=== PATIENT | female | born 1975 | race Caucasian/White ===

== ENCOUNTER 2023-06-06 18:31 | Observation (INO) ==
[2023-06-06] MEDS: PIPERACILLIN SODIUM/TAZOBACTAM 3.375 GM in DEXTROSE 5% IN WATER 50 ML IV ONE (19:13)
[2023-06-06] MEDS ORDERED: PROMETHAZINE 25 MG/ML VIAL IV PRN (19:27)
[2023-06-06] MEDS ORDERED: ONDANSETRON 4 MG/2 ML VIAL IV PRN (19:27)
[2023-06-06 19:33] LABS: Appearance,Urine Clear (Clear); Bilirubin,Urine Negative (Negative); Color,Urine Yellow; Glucose,Urine (UA) Negative (Negative); Ketones,Urine 40 mg/dL (Negative); Leukocyte Esterase,Urine Negative /uL (Negative); Nitrate,Urine Negative (Negative); PH,Urine 5.5 (5.0-9.0); Protein,Urine Trace mg/dL (Negative); Specific Gravity,Urine <= 1.005 (1.000-1.035); Urine Blood Moderate ery/mcL (Negative); Urobilinogen,Urine Normal
[2023-06-06 19:44] LABS: Culture Indicated,Urine No; Urine RBC < 1 /hpf (0-3); Urine Squamous Epithelial Cell < 1 /hpf (0-4); Urine WBC < 1 /hpf (0-4)
[2023-06-06 20:08] LABS: Prothrombin Time 14.1 sec (11.9-14.5)
[2023-06-06] MEDS: ACETAMINOPHEN 1,000 MG/100 ML BAG IV SCH (21:07)
[2023-06-06] MEDS: 0.9 % SODIUM CHLORIDE 1,000 ML IV SCH (21:08)
[2023-06-06] MEDS: PIPERACILLIN SODIUM/TAZOBACTAM 3.375 GM in DEXTROSE 5% IN WATER 100 ML IV SCH (21:08)
[2023-06-07 08:46] LABS: Basophils # (Auto) 0.02 K/mcL (0.00-0.30); Basophils % (Auto) 0.2 % (0.0-2.0); Eosinophils # (Auto) 0.08 K/mcL (0.00-0.70); Hematocrit 36.6 % (34.1-44.9); Hemoglobin 12.1 g/dL (11.2-15.7); Lymphocytes # (Auto) 0.82 K/mcL (1.50-4.80); Lymphocytes % (Auto) 9.8 % (15.5-49.0); Mean Cell Volume 96.3 fL (80.0-100.0); Mean Corpuscular HGB Conc 33.1 g/dL (31.0-36.0); Mean Platelet Volume 8.5 fL (8.8-12.5); Monocytes # (Auto) 0.51 K/mcL (0.10-0.90); Monocytes % (Auto) 6.1 % (1.0-12.0); Neutrophils % (Auto) 82.8 % (38.0-78.0); Platelet Count 235 K/mcL (140-440); Red Cell Distribution Width 12.5 % (11.5-14.5); WBC 8.4 K/mcL (4.5-11.0)
[2023-06-07] MEDS ORDERED: ROCURONIUM 10 MG/ML ML IV ONE ×2 (09:08→09:42)
[2023-06-07] MEDS ORDERED: fentaNYL 100 MCG/2 ML VIAL ONE (09:12)
[2023-06-07] MEDS ORDERED: ONDANSETRON 4 MG/2 ML VIAL ONE (09:12)
[2023-06-07] MEDS ORDERED: IPRATROPIUM/ALBUTEROL 3 ML AMPUL.NEB NEB PRN ×2 (09:30→09:45)
[2023-06-07] MEDS ORDERED: SCOPOLAMINE 1 PATCH PATCH TOPICAL PRN (09:30)
[2023-06-07] MEDS ORDERED: PHENYLephrine 1 MG/10 ML SYRINGE (ANEST) ONE (09:33)
[2023-06-07] MEDS ORDERED: PROPOFOL 200 MG/20 ML VIAL IV ONE (09:42)
[2023-06-07] MEDS ORDERED: KETOROLAC 15 MG/ML VIAL IV PRN (09:45)
[2023-06-07] MEDS ORDERED: NALOXONE HCL 0.4 MG/ML VIAL IV PRN (09:45)
[2023-06-07] MEDS ORDERED: fentaNYL 100 MCG/2 ML VIAL IV PRN ×2 (09:45→11:45)
[2023-06-07] MEDS ORDERED: PROCHLORPERAZINE 10 MG/2 ML VIAL IV PRN (09:46)
[2023-06-07] MEDS ORDERED: SUGAMMADEX SODIUM 200 MG/2 ML VIAL IV ONE (09:48)
[2023-06-07] MEDS ORDERED: HYDROmorphone 1 MG/ML SYRINGE ONE (09:49)
[2023-06-07] MEDS ORDERED: oxyCODONE IR 5 MG TABLET PO PRN (11:46)
[2023-06-08 05:54] LABS: Basophils # (Auto) 0.01 K/mcL (0.00-0.30); Basophils % (Auto) 0.1 % (0.0-2.0); Eosinophils # (Auto) 0.03 K/mcL (0.00-0.70); Eosinophils % (Auto) 0.3 % (0.0-7.0); Hematocrit 34.3 % (34.1-44.9); Hemoglobin 11.1 g/dL (11.2-15.7); Lymphocytes # (Auto) 0.89 K/mcL (1.50-4.80); Lymphocytes % (Auto) 8.6 % (15.5-49.0); Mean Cell Volume 97.2 fL (80.0-100.0); Mean Corpuscular HGB Conc 32.4 g/dL (31.0-36.0); Mean Platelet Volume 8.8 fL (8.8-12.5); Monocytes # (Auto) 0.45 K/mcL (0.10-0.90); Monocytes % (Auto) 4.4 % (1.0-12.0); Neutrophils % (Auto) 86.4 % (38.0-78.0); Platelet Count 260 K/mcL (140-440); RBC 3.53 M/mcL (3.59-5.38); Red Cell Distribution Width 12.4 % (11.5-14.5); WBC 10.3 K/mcL (4.5-11.0)
[2023-06-08] MEDS: ESTRADIOL 1 MG TABLET PO SCH (08:20)
[2023-06-08] MEDS: THYROID, PORK 60 MG TABLET PO SCH (08:20)
[2023-06-08] MEDS ORDERED: ESTRADIOL 0.5 MG TABLET PO SCH (09:00)
[2023-06-08] MEDS: Progesterone Micronized 100 mg capsule PO SCH (09:34)
[2023-06-08] MEDS: ACETAMINOPHEN 500 MG TABLET PO SCH (13:52)
== END 2023-06-08 14:35 | disposition home or self-care (01) ==
LOC: ED 18:31 → MEDSUR 18:31
PROVIDERS: ADMIT Family Medicine Adult Medicine; ATTEND Family Medicine Adult Medicine
PROC: LAPAPPY (ICD-10-PCS; 2023-06-07 09:12)